=== PATIENT | female | born 1965 | race Caucasian/White ===

== ENCOUNTER 2017-07-30 01:55 | Emergency (ER) | payer OTHER ==
[~2017-07-30] VITALS: Ht 175.3 cm; Wt 95.0 kg
[~2017-07-30 01:55] MED LIST: ADULT LOW DOSE81 M1 PO; DURAGESIC75 MCG TD; EFFEXOR XR75 MG PO; FENTANYL1 EAC1 TD; FLEXERIL10 MG PO; FLUTICASONE PRO16 GM BOTH NARES; LEVOTHROID,SYN0.1 MG PO; LEVOTHYROXINE112 MCG PO; NASALIDE; OMEGA 3 1,0001 EACH PO; PEN-VEE K,VEET500 MG PO; PREDNISONE20 MG PO; PROVENTIL,200 INHALA IH; ROBITUSSIN AC,T10 ML PO; SINGULAIR10 MG PO; TOPAMAX100 MG PO; VENTOLIN HFA18 GM IH; VITAMIN B12-FO1 EACH PO
[2017-07-30 04:25] LABS: HEMATOCRIT 43.7 % (36.0-46.0); HEMOGLOBIN 15.8 G/DL (11.9-15.5); MCH 31.2 PG (29.0-34.0); MCHC 36.2 G/DL (30.0-36.0); MCV 86.4 FL (83-99); PLATELET COUNT 236 K/uL (156-360); RBC DIS.WIDTH-SD 37.3 % (39-53); RED BLOOD COUNT 5.06 M/uL (3.80-5.20); WHITE BLOOD COUNT 9.2 K/uL (4.1-10.2)
[2017-07-30 04:37] LABS: CHLORIDE 105 mEq/L (99-109); POTASSIUM 4.7 mEq/L (3.7-5.4); SODIUM 138 mEq/L (136-147)
[2017-07-30 04:39] LABS: GLUCOSE 94 mg/dL (70-99)
[2017-07-30 04:43] LABS: CREATININE 0.8 mg/dL (0.6-1.3); GFR ESTIMATE (CALCULATED) > 59 mL/min/
[2017-07-30 04:44] LABS: UREA NITROGEN (BUN) 14 mg/dL (9-23)
[2017-07-30 04:45] LABS: CREATINE KINASE 131 IU/L (1-294)
[2017-07-30] MEDS ORDERED: FLEXERIL10 MG PO (05:52)
[2017-07-30 05:54] LABS: ERTH.SED.RATE 14 MM/HR (0-30)
[2017-07-30 06:15] VITALS: BP 126/89
== END 2017-07-30 06:15 | disposition home or self-care (01) ==
LOC: EME 01:55
PROVIDERS: Emergency Medicine Emergency Medical Services
DX: M62.838 Other muscle spasm (principal); E03.9 Hypothyroidism, unspecified; J45.909 Unspecified asthma, uncomplicated; M51.36 Other intervertebral disc degeneration, lumbar region; Z96.89 Presence of other specified functional implants; Z87.442 Personal history of urinary calculi; Z88.8 Allergy status to other drugs, medicaments and biological substances
CPT/HCPCS: 80048; 82550; 83605; 85027; 85652; 99281; 99284; J2270